=== PATIENT | female | born 1980 | race Two or more races ===

== ENCOUNTER 2022-10-24 07:30 | Emergency (ER) | payer OTHER ==
[~2022-10-24] VITALS: Ht 162.6 cm; Wt 50.0 kg
[2022-10-24 08:58] LABS: Albumin 3.7 g/dL (3.4-5.0); Calcium 9.2 mg/dL (8.5-10.1); Potassium 3.4 mmol/L (3.5-5.1)
[2022-10-24 09:00] LABS: Hemoglobin 8.1 g/dL (12.2-16.2); White Blood Cell 6.2 10^3/uL (4.4-10.8)
[2022-10-24 09:01] LABS: BUN/Creatinine Ratio 12.8 (10.0-20.0); Bilirubin, Total 0.2 mg/dL (0.2-1.0); Total Protein 8.5 g/dL (6.4-8.2)
[2022-10-24 09:02] LABS: Hematocrit 28.6 % (36.0-46.0); Mean Corpuscular Hemoglobin 17.7 pg (28.0-32.0); Mean Corpuscular Hgb Conc. 28.3 g/dL (32.0-36.0); Mean Corpuscular Volume 62.5 fL (80.0-100.0); Red Blood Cells 4.57 10^6/uL (4.0-5.20)
[2022-10-24 09:13] LABS: Red Cell Distribution Width 21.6 % (11.8-14.3)
[2022-10-24 09:14] LABS: Basophils % (manual) 0 (0.0-2.0); Blast Cells 0; Promyelocytes % 0; Reactive Lymphocytes 0
[2022-10-24] MEDS ORDERED: SODIUM CHLORIDE 0.9% 1,000 ML IV ONE ×2 (09:30)
[2022-10-24] MEDS ORDERED: ONDANSETRON HCL 4 MG/2 ML VIAL IV ONE (09:30)
[2022-10-24] MEDS ORDERED: KETOROLAC TROMETH 30 MG/ML 1ML VIAL IV ONE (09:30)
[2022-10-24 10:41] LABS: Band Neutrophils % (manual) 2; Eosinophils % (manual) 3 (0-7); Lymphocytes % (manual) 21 (10.0-50.0); Metamyelocytes % 3; Monocytes % (manual) 3 (0-12); Myelocytes % 2
[2022-10-24 11:14] VITALS: BP 154/67
== END 2022-10-24 11:25 | disposition home or self-care (01) ==
LOC: ER 07:30 → EDBD 07:30 → ER 11:25
DX: N20.0 Calculus of kidney (principal); I10 Essential (primary) hypertension; J45.909 Unspecified asthma, uncomplicated; R10.2 Pelvic and perineal pain; Z98.890 Other specified postprocedural states
CPT/HCPCS: 36415; 74176; 80053; 83690; 84702; 85007; 85027; 96361; 96374; 96375; 99285; J1885; J2405; J7030

== ENCOUNTER 2022-11-25 16:23 | Emergency (ER) | payer OTHER ==
[~2022-11-25] VITALS: Ht 162.6 cm; Wt 60.0 kg
[2022-11-25] MEDS ORDERED: amLODIPine BESYLATE 5 MG TAB PO ONE (17:45)
[2022-11-25] MEDS ORDERED: SODIUM CHLORIDE 0.9% 1,000 ML IV ONE (17:45)
[2022-11-25 18:14] LABS: Basophils # (auto) 0.1 10 ^3/uL (0-0.2); Basophils % (auto) 0.6 % (0.0-2.0); Eosinophils # (auto) 0.5 10 ^3/uL (0-0.8); Hematocrit 26.8 % (36.0-46.0); Hemoglobin 7.5 g/dL (12.2-16.2); Lymphocytes # (auto) 1.2 10 ^3/uL (0.4-5.4); Lymphocytes % (auto) 12.8 % (10.0-50.0); Mean Corpuscular Hemoglobin 17.5 pg (28.0-32.0); Mean Corpuscular Hgb Conc. 28.2 g/dL (32.0-36.0); Mean Corpuscular Volume 62.3 fL (80.0-100.0); Monocytes # (auto) 0.7 10 ^3/uL (0-1.3); Monocytes % (auto) 7.6 % (0.0-12.0); Neutrophils # (auto) 7.1 10 ^3/uL (1.6-8.6); White Blood Cell 9.6 10^3/uL (4.4-10.8)
[2022-11-25 18:16] LABS: Red Cell Distribution Width 22.3 % (11.8-14.3)
[2022-11-25 18:29] LABS: Albumin 3.6 g/dL (3.4-5.0); Anion Gap 6 (5-15); Blood Alcohol < 3.0 mg/dL (<10); Blood Urea Nitrogen 10 mg/dL (7-18); Calcium 9.3 mg/dL (8.5-10.1); Carbon Dioxide 25 mmol/L (21-32); Chloride 108 mmol/L (98-107); Glucose 90 mg/dL (74-106); INR 1.02 (0.9-1.15); Lipase 79 U/L (73-393); Potassium 3.6 mmol/L (3.5-5.1); Prothrombin Time 10.7 sec (9.3-11.8); Sodium 139 mmol/L (136-145)
[2022-11-25 18:30] LABS: Salicylate 3.5 mg/dL (2.8-20.0)
[2022-11-25 18:32] LABS: Alanine Aminotransferase 21 U/L (13-56); Alkaline Phosphatase 85 U/L (45-117); Aspartate Aminotransferase 18 U/L (15-37); BUN/Creatinine Ratio 10.9 (10.0-20.0); Bilirubin, Total 0.2 mg/dL (0.2-1.0); GFR African American 87 mL/min; GFR Non-African American 72 mL/min; Total Protein 8.7 g/dL (6.4-8.2)
[2022-11-25 18:38] VITALS: BP 180/120; PULSE 99; RESP 16; O2SAT 100
[2022-11-25 19:07] LABS: Acetaminophen < 2.0 ug/mL (10-30)
[2022-11-25 19:39] LABS: Anisocytosis Slight; Hypochromia Marked; Large Platelets FEW; Platelet Estimate Adequate; Stomatocytes Few; Target Cell FEW
[2022-11-25] MEDS ORDERED: FERROUS SULFATE 325mg EC TAB PO ONE (21:15)
[2022-11-25] MEDS ORDERED: ASPirin-EC 325mg tab PO ONE (21:15)
[2022-11-26] MEDS ORDERED: CEPH250C PO (07:05)
[2022-11-26] MEDS ORDERED: CLIN300C70 PO (07:05)
== END 2022-11-25 21:22 | disposition left against medical advice (07) ==
LOC: EDBD 16:23 → ER 16:23
DX: I63.9 Cerebral infarction, unspecified (principal); D50.9 Iron deficiency anemia, unspecified; I10 Essential (primary) hypertension; R10.2 Pelvic and perineal pain; J45.909 Unspecified asthma, uncomplicated; Z87.442 Personal history of urinary calculi
CPT/HCPCS: 36415; 70450; 71045; 80053; 80320; 80329; 83690; 83735; 84484; 84702; 85025; 85610; 93005; 96360; 96361; 99285; J7030

== ENCOUNTER 2022-11-26 05:18 | Emergency (ER) | payer OTHER ==
[~2022-11-26] VITALS: Ht 162.6 cm; Wt 53.5 kg
[2022-11-26] MEDS ORDERED: amLODIPine BESYLATE 5 MG TAB PO ONE (05:45)
[2022-11-26 05:55] VITALS: TEMP 98.6
[2022-11-26] MEDS ORDERED: cefTRIAXone SOD 1,000 MG VL IM ONE (06:30)
[2022-11-26 06:33] LABS: Basophils # (auto) 0.1 10 ^3/uL (0-0.2); Monocytes # (auto) 0.6 10 ^3/uL (0-1.3)
[2022-11-26 06:37] LABS: Basophils % (auto) 0.5 % (0.0-2.0); Eosinophils # (auto) 0.5 10 ^3/uL (0-0.8); Eosinophils % (auto) 5.1 % (0.0-7.0); Hematocrit 26.1 % (36.0-46.0); Hemoglobin 7.6 g/dL (12.2-16.2); Lymphocytes # (auto) 1.5 10 ^3/uL (0.4-5.4); Lymphocytes % (auto) 15.4 % (10.0-50.0); Mean Corpuscular Hemoglobin 17.8 pg (28.0-32.0); Mean Corpuscular Hgb Conc. 28.9 g/dL (32.0-36.0); Mean Corpuscular Volume 61.4 fL (80.0-100.0); Monocytes % (auto) 5.6 % (0.0-12.0); Neutrophils # (auto) 7.3 10 ^3/uL (1.6-8.6); Neutrophils % (auto) 73.4 % (37.0-80.0); Red Blood Cells 4.25 10^6/uL (4.0-5.20)
[2022-11-26 06:50] LABS: Albumin 3.4 g/dL (3.4-5.0); Calcium 9.1 mg/dL (8.5-10.1); Potassium 3.5 mmol/L (3.5-5.1)
[2022-11-26 06:53] LABS: BUN/Creatinine Ratio 12.1 (10.0-20.0); Bilirubin, Total 0.3 mg/dL (0.2-1.0); Total Protein 8.8 g/dL (6.4-8.2)
[2022-11-26 06:57] LABS: Red Cell Distribution Width 21.7 % (11.8-14.3)
[2022-11-26 07:00] VITALS: BP 159/109; PULSE 107; RESP 20; O2SAT 100
[2022-11-26] MEDS ORDERED: CEPH250C PO (07:05)
[2022-11-26] MEDS ORDERED: CLIN300C70 PO (07:05)
[2022-11-26] MEDS ORDERED: cloNIDine HCL 0.1 MG TAB PO ONE (07:15)
[2022-11-26 08:00] LABS: Urine Bacteria MANY /hpf (None Seen); Urine Blood 1+ /uL (Negative); Urine Clarity CLOUDY (Clear); Urine Color Yellow (Yellow); Urine Protein, UAD 2+ (Negative); Urine Specific Gravity 1.017 (1.001-1.035); Urine WBC 254 /hpf (0 - 5)
== END 2022-11-26 08:45 | disposition home or self-care (01) ==
LOC: ER 05:19
DX: L03.317 Cellulitis of buttock (principal); I16.0 Hypertensive urgency; I10 Essential (primary) hypertension; J45.909 Unspecified asthma, uncomplicated; Z87.442 Personal history of urinary calculi
CPT/HCPCS: 36415; 80053; 81001; 83690; 85025; 96372; 99283; J0696